=== PATIENT | female | born 1955 | race Caucasian/White ===

== ENCOUNTER 2016-07-26 08:30 | Emergency (ER) | payer OTHER ==
[2016-07-26] MEDS ORDERED: methylPREDNISolone Sod Succ/PF 125 MG/2 ML VIAL ONE (08:43)
[2016-07-26] MEDS ORDERED: Magnesium Sulfate 2 GM/100 ML BAG ONE (09:03)
[2016-07-26] MEDS ORDERED: Albuterol Sulfate 1.25 MG/3 ML NEB ONE (09:03)
[2016-07-26] MEDS ORDERED: Acetaminophen 500 MG TAB ONE (09:21)
[2016-07-26] MEDS ORDERED: traMADol HCl 50 MG TAB ONE (09:26)
[2016-07-26 09:30] LABS: ALT (SGPT) 48 U/L (0-55); AST (SGOT) 48 U/L (5-34); Alkaline Phosphatase 70 U/L (40-150); Anion Gap 10 mmol/L (10-20); BUN (Urea Nitrogen) 7 mg/dL (9.8-20.1); Bilirubin, Total 0.5 mg/dL (0.2-1.2); Calc. Creatinine Clearance 0 mL/min (70-130); Calcium 8.7 mg/dL (7.8-10.44); Carbon Dioxide 28 mmol/L (22-29); Chloride 103 mmol/L (98-107); Estimated GFR-MDRD 73; Globulin 3.2 g/dL (2.4-3.5); Protein, Total 6.7 g/dL (6.0-8.3)
[2016-07-26 09:31] LABS: Hematocrit 32.5 % (36.0-47.0); Mean Platelet Volume 8.8 fL (7.4-10.4); Red Blood Cell (RBC) Count 4.23 mill/uL (4.20-5.40); White Blood Cell (WBC) Count 6.1 thou/uL (4.8-10.8)
[2016-07-26 09:34] LABS: #Basophils 0.1 thou/uL (0.0-0.2); #Eosinphils 0.2 thou/uL (0.0-0.7); #Lymphocytes 1.4 thou/uL (1.20-3.40); #Monocytes 0.7 thou/uL (0.11-0.59); #Neutrophils 3.8 thou/uL (1.40-6.50); %Basophils 1.2 % (0.0-1.0); %Eosinophils 2.9 % (0.0-10.0); %Monocytes 10.8 % (0.0-10.0); Hypochromia SLIGHT = 6-15 cells (100X) (0-5/hpf); Microcytosis SLIGHT = 6-15 cells (100X) (0-5/hpf); Poikilocytosis MODERATE=16-30 cells (100X) (0-5/hpf); Polychromasia SLIGHT = 2-3 cells (100X) (0-2/hpf)
--- NOTE | 2016-07-26 10:19 | ERRECORD ---
[facility] EMERGENCY RECORD HPI COPD (08:36 [facility]) CHIEF COMPLAINT: Patient presents for evaluation of cough, Patient presents for evaluation of dyspnea, Patient presents for evaluation of wheezing. HISTORIAN: History provided by patient. LOCATION: Symptoms are generalized. QUALITY: Symptoms described as tightness, Pain is dull in nature, described as tightness reported., Described as similar to previous episodes. SEVERITY: Maximum severity of symptoms severe, Currently symptoms are severe. TIME COURSE: Gradual onset of symptoms, past several days., Symptoms are worsening. ASSOCIATED WITH: No associated chest pain, Associated with cough, No associated fever, Associated with increased inhaler use, No associated orthopnea, Associated with upper respiratory infection, No associated weakness, Associated with history of chronic obstructive pulmonary disease, Associated with history of previous ventilator, Denies any other complaints, Had pacemaker placed 2 weeks ago. EXACERBATED BY: Patient's condition exacerbated by deep breaths, Patient's condition exacerbated by exercise. RELIEVED BY: Patient's condition not relieved by inhaler use, Patient's condition not relieved by oxygen. RISK FACTORS: No pulmonary embolism risk factors, Coronary artery disease risk factors, include smoking. ROS (08:36 [facility]) CONSTITUTIONAL: Historian reports chills, denies fever, reports weakness. EYES: Negative eye review of systems, Historian denies eye pain, denies eye redness, denies eye discharge. ENT: Historian denies rhinorrhea, denies sore throat. CARDIOVASCULAR: Historian reports chest pain, no radiation, Historian reports dyspnea on exertion, denies edema, denies orthopnea, denies syncope, denies palpitations. CP noted with coughing, intermittent. RESPIRATORY: Historian reports cough, reports shortness of breath, denies sputum, denies stridor, reports wheezing. GI: Negative gastrointestinal review of systems, Historian denies abdominal pain, denies diarrhea, denies nausea, denies vomiting. GENITOURINARY FEMALE: Historian denies dysuria, denies frequency, denies hematuria. MUSCULOSKELETAL: Historian denies injury, Denies any musculoskeletal pain. SKIN: Negative skin review of systems, Historian denies skin changes. NEUROLOGIC: Negative neurologic review of systems, Historian denies focal weakness, denies sensory changes. &a-1R&a+25V*p+0X*l0522H*c202B*c15G*c2P*p-0X&a-25V&a+1R Name: Erum Verde : 1955 F60 MedRec: [id number] AcctNum: [id number] Prepared: Ruthie Jul 27, 2016 06:08 by Interface Page 1 of 5 pMD [facility] EMERGENCY RECORD HEMO/LYMPHATIC: Historian denies abnormal blood clotting, denies easy bruising. PAST MEDICAL HISTORY (:24 [facility]) MEDICAL HISTORY: Notes: anemic, Past medical history includes history of diabetes, Type II, Past medical history includes cardiac history, congestive heart failure, arrhythmia, atrial fibrillation, Past medical history includes history of hypertension, Past medical history includes pulmonary disease, chronic obstructive pulmonary disease. FEMALE SURGICAL HISTORY: pacemaker placement, surgery on right arm and right leg, Surgical history of cholecystectomy. PSYCHIATRIC HISTORY: Psychiatric history includes, anxiety. SOCIAL HISTORY: Patient denies alcohol use, Patient denies drug use, Patient is a former tobacco user, smoked cigarettes, Patient quit smoking in the past year, Patient denies alcohol use, Patient denies drug use, Patient currently uses tobacco, smokes cigarettes, 1-2 a week. KNOWN ALLERGIES lisinopril CURRENT MEDICATIONS [place]: TABLET : Strength - 10 mg-325 mg : ORAL Patient Dose: 1 tab(s) Oral every 6 hours PRN. (:18 [facility]) TABLET : Strength - 5 mg-325 mg : ORAL Patient Dose: 1 tab(s) Oral 2 times a day. (:18 [facility]) albuterol: AEROSOL (GRAM) : Strength - 90 mcg : INHALATION Patient Dose: 2 puff(s) Inhaler every 4 hours prn. (:18 [facility]) albuterol sulfate: VIAL, NEBULIZER (ML) : Strength - 2.5 mg/3 mL (0.083 %) : INHALATION Patient Dose: 1 units Nebulize every 4 hours prn. (:18 [facility]) ALPRAZolam: TABLET : Strength - 0.5 mg : ORAL Patient Dose: 1 tab(s) Oral. (09:18 [facility]) Eliquis: TABLET : Strength - 5 mg : ORAL Patient Dose: 1 tab(s) Oral 2 times a day. (09:19 [facility]) aspirin: TABLET : Strength - 81 mg : ORAL Patient Dose: 81 mg Oral once a day. (09: [facility]) Wellbutrin: TABLET : Strength - 100 mg : ORAL &a-1R&a+25V*p+0X*q6444A*c202B*c15G*c2P*p-0X&a-25V&a+1R Name: Erum Verde : 1955 F60 MedRec: [id number] AcctNum: [id number] Prepared: Ruthie Jul 27, 2016 06:08 by Interface Page 2 of 5 pMD [facility] EMERGENCY RECORD Patient Dose: 150 mg Oral once a day. (09: [facility]) Cardizem LA: TABLET, EXTENDED RELEASE 24 HR : Strength - 240 mg : ORAL Patient Dose: 1 tab(s) Oral once a day (in the morning). (09: [facility]) Pepcid: TABLET : Strength - 20 mg : ORAL Patient Dose: 20 mg Oral once a day. (09: [facility]) flecainide: TABLET : Strength - 50 mg : ORAL Patient Dose: 100 mg Oral 2 times a day. (09: [facility]) Flonase: SPRAY, SUSPENSION : Strength - 50 mcg : NASAL Patient Dose: 1 spray(s) Intranasal. (09: [facility]) Breo Ellipta: BLISTER, WITH INHALATION DEVICE : Strength - 100 mcg-25 mcg/dose : INHALATION Patient Dose: 1 puff(s) Inhaler once a day. (09: [facility]) furosemide: TABLET : Strength - 40 mg : ORAL Patient Dose: 40 mg Oral once a day. (: [facility]) LORazepam: TABLET : Strength - 1 mg : ORAL Patient Dose: 1 tab(s) Oral every 8 hours PRN. (: [facility]) Singulair: TABLET : Strength - 10 mg : ORAL Patient Dose: 10 mg Oral once a day. (09: [facility]) predniSONE: TABLET : Strength - 20 mg : ORAL Patient Dose: 1 tab(s) Oral once a day (in the morning). (: [facility]) Requip: TABLET : Strength - 1 mg : ORAL Patient Dose: 1 mg Oral once a day. (09: [facility]) traZODone: TABLET : Strength - 50 mg : ORAL Patient Dose: 1 tab(s) Oral once a day (at bedtime). (09:28 [facility]) VITAL SIGNS VITAL SIGNS: BP: 172/134, Pulse: 94, Resp: 24, Temp: 98.0 (Oral), Pain: 8, O2 sat: 96 on 2L Oxygen, Time: 07/26/2016 08:39. (08:39 [facility]) BP: 138/93, Pulse: 84, Resp: 25, O2 sat: 94 on 2L Oxygen, Time: 07/26/2016 08:45. (08:45 [facility]) BP: 119/85, Pulse: 89, Resp: 22, Temp: 98.3 (Oral), Pain: 7, O2 sat: 96 on 2L Oxygen, Time: 07/26/2016 09:15. (09:15 [facility]) PHYSICAL EXAM (08:36 [facility]) CONSTITUTIONAL: Vital Signs Reviewed, Patient appears non toxic, Patient appears pain free, Patient alert and oriented to person, &a-1R&a+25V*p+0X*m9060R*c202B*c15G*c2P*p-0X&a-25V&a+1R Name: Erum Verde : 1955 F60 MedRec: [id number] AcctNum: [id number] Prepared: Ruthie Jul 27, 2016 06:08 by Interface Page 3 of 5 D [facility] EMERGENCY RECORD place and time, Nursing notes reviewed. HEAD: Head exam included findings of head atraumatic, normocephalic. EYES: Eye exam included findings of eyelids normal to inspection, Pupils equally round and reactive to light, Extraocular muscles intact. ENT: Ear exam normal, external ear normal, Pharynx exam normal. NECK: Neck exam normal, no cervical adenopathy, no tenderness. RESPIRATORY CHEST: Respiratory exam included findings of, moderate respiratory distress, Breath sounds not clear, Wheezing present, No rales, No rhonchi, Breath sounds diminished, to bilateral upper lobes, to bilateral lower lobes, Chest exam included findings of chest movement symmetrical, Chest expansion equal, no tenderness. CARDIOVASCULAR: Cardiovascular exam included findings of heart rate regular rate and rhythm, Heart sounds normal, normal S1, normal S2, no murmurs, Carotids normal, Pedal pulses normal, Pacer site L upper chest looks clean/dry/intact. ABDOMEN FEMALE: Abdominal exam included findings of abdomen nontender, Bowel sounds normal, no peritoneal signs, no rigidity, no guarding, no rebound. BACK: Back exam included findings of normal inspection, no tenderness. UPPER EXTREMITY: Upper extremity exam included findings of inspection normal, Radial pulse normal, no cyanosis, no clubbing, no edema. LOWER EXTREMITY: Lower extremity exam included findings of inspection normal, femoral pulses normal, no cyanosis, no clubbing, no edema, no tenderness noted. NEURO: Neuro exam findings include patient oriented to, person, place, Speech normal, Cranial nerves intact, no focal motor deficits, no focal sensory deficits. SKIN: Skin exam included findings of skin warm, dry, and normal in color. EKG INTERPRETATION (08:44 [facility]) 12 LEAD EKG INTERPRETATION: 12 lead EKG interpreted by Emergency Department Physician at time of study, 12 lead EKG shows, Rate (beats per minute): 95, Atrial sensed pacer with nml function and occasional sinus complexes., Conduction with, nonspecific intraventricular conduction delay. RADIOLOGYINTERPRETATION (09:00 [facility]) CHEST: Chest films negative, no infiltrates, no pneumothorax. DIVING COACH: Preliminary review of x-rays by, ED Physician. MEDICATION ADMINISTRATION SUMMARY Drug Name: *traMADol, Dose Ordered: 50 mg, Route: Oral, Status: &a-1R&a+25V*p+0X*w1886Z*c202B*c15G*c2P*p-0X&a-25V&a+1R Name: Erum Verde : 1955 F60 MedRec: [id number] AcctNum: [id number] Prepared: Ruthie Jul 27, 2016 06:08 by Interface Page 4 of 5 pMD [facility] EMERGENCY RECORD Given, Time: 09:27 07/26/2016, Drug Name: *Tylenol Extra Strength, Dose Ordered: 1 g, Route: Oral, Status: Held, Time: 09:22 07/26/2016, Drug Name: albuterol sulfate inhalation, Dose Ordered: 10 mg, Route: Nebulize, Status: Given, Time: 09:11 07/26/2016, Drug Name: magnesium sulfate injection, Dose Ordered: 2 g, Route: IV Piggy Back, Status: Given, Time: 09:11 07/26/2016, Drug Name: methylPREDNISolone sodium succ injection, Dose Ordered: 125 mg, Route: IV Push, Status: Given, Time: 09:04 07/26/2016, Drug Name: *DuoNeb, Dose Ordered: 3 mL, Route: Nebulize, Status: Given, Time: 08:39 07/26/2016, *Additional information available in notes, Detailed record available in Medication Service section. DOCTOR NOTES RE-EVALUATION: Routine re-evaluation, after administration of bronchodilator nebulizer treatments, The patient's condition has improved, mild increase in her air movement and her work of breathing is better but wheezing continues. Will continue her breathing treatments and other therapies. Discussed plan and possible need for transfer if symptoms do not improve. (09:00 [facility]) TEXT: Dr Diaz accepted at [facility] Pt stable remains tight on expiration but no distress. (09:50 [facility]) SIGN OUT: Patient signed out to, Dr. Parker. (09:00 [facility]) PROBLEM LIST No recorded problems DIAGNOSIS (09:52 [facility]I) FINAL: PRIMARY: copd exacerbation. PRESCRIPTION No recorded prescriptions DISPOSITION PATIENT: Disposition Type: Transfer, Disposition: [facility], Disposition Transport: Ambulance, Condition: Fair. (09:52 [facility]MEI) Patient left the department. (10:15 [facility]) Gates: GREG=NED Ruvalcaba, Angel KMOR=NED Cote, Angelica MBRI=DO Shabazz Matthew WMEI=DO Parker William &a-1R&a+25V*p+0X*s9404R*c202B*c15G*c2P*p-0X&a-25V&a+1R Name: Erum Verde : 1955 F60 MedRec: [id number] AcctNum: [id number] Prepared: Ruthie Jul 27, 2016 06:08 by Interface Page 5 of 5 pMD MTDD
--- NOTE | 2016-07-26 10:25 | PICIS ---
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 FACTORS: No pulmonary embolism risk factors, Coronary artery disease risk factors, include smoking. ROS (08:36 MBRI) CONSTITUTIONAL: Historian reports chills, denies fever, reports weakness. EYES: Negative eye review of systems, Historian denies eye pain, denies eye redness, denies eye discharge. ENT: Historian denies rhinorrhea, denies sore throat. CARDIOVASCULAR: Historian reports chest pain, no radiation, Historian reports dyspnea on exertion, denies edema, denies orthopnea, denies syncope, denies palpitations. CP noted with coughing, intermittent. RESPIRATORY: Historian reports cough, reports shortness of breath, denies sputum, denies stridor, reports wheezing. GI: Negative gastrointestinal review of systems, Historian denies abdominal pain, denies diarrhea, denies nausea, denies vomiting. GENITOURINARY FEMALE: Historian denies dysuria, denies frequency, denies hematuria. MUSCULOSKELETAL: Historian denies injury, Denies any musculoskeletal pain. SKIN: Negative skin review of systems, Historian denies skin changes. NEUROLOGIC: Negative neurologic review of systems, Historian denies focal weakness, denies sensory changes. HEMO/LYMPHATIC: Historian denies abnormal blood clotting, denies easy bruising. PAST MEDICAL HISTORY (09:24 [facility]) &a-1R&a+25V*p+0X*r0092B*c202B*c15G*c2P*p-0X&a-25V&a+1R Name: Erum Verde : 1955 F60 MedRec: [id number] AcctNum: [id number] Prepared: Ruthie Jul 27, 2016 06:15 by Interface Page 10 of 14 pMD [facility] EMERGENCY RECORD MEDICAL HISTORY: Notes: anemic, Past medical history includes history of diabetes, Type II, Past medical history includes cardiac history, congestive heart failure, arrhythmia, atrial fibrillation, Past medical history includes history of hypertension, Past medical history includes pulmonary disease, chronic obstructive pulmonary disease. FEMALE SURGICAL HISTORY: pacemaker placement, surgery on right arm and right leg, Surgical history of cholecystectomy. PSYCHIATRIC HISTORY: Psychiatric history includes, anxiety. SOCIAL HISTORY: Patient denies alcohol use, Patient denies drug use, Patient is a former tobacco user, smoked cigarettes, Patient quit smoking in the past year, Patient denies alcohol use, Patient denies drug use, Patient currently uses tobacco, smokes cigarettes, 1-2 a week. PHYSICAL EXAM (08:36 MBRI) CONSTITUTIONAL: Vital Signs Reviewed, Patient appears non toxic, Patient appears pain free, Patient alert and oriented to person, place and time, Nursing notes reviewed. HEAD: Head exam included findings of head atraumatic, normocephalic. EYES: Eye exam included findings of eyelids normal to inspection, Pupils equally round and reactive to light, Extraocular muscles intact. ENT: Ear exam normal, external ear normal, Pharynx exam normal. NECK: Neck exam normal, no cervical adenopathy, no tenderness. RESPIRATORY CHEST: Respiratory exam included findings of, moderate respiratory distress, Breath sounds not clear, Wheezing present, No rales, No rhonchi, Breath sounds diminished, to bilateral upper lobes, to bilateral lower lobes, Chest exam included findings of chest movement symmetrical, Chest expansion equal, no tenderness. CARDIOVASCULAR: Cardiovascular exam included findings of heart rate regular rate and rhythm, Heart sounds normal, normal S1, normal S2, no murmurs, Carotids normal, Pedal pulses normal, Pacer site L upper chest looks clean/dry/intact. ABDOMEN FEMALE: Abdominal exam included findings of abdomen nontender, Bowel sounds normal, no peritoneal signs, no rigidity, no guarding, no rebound. BACK: Back exam included findings of normal inspection, no tenderness. UPPER EXTREMITY: Upper extremity exam included findings of inspection normal, Radial pulse normal, no cyanosis, no clubbing, no edema. LOWER EXTREMITY: Lower extremity exam included findings of inspection normal, femoral pulses normal, no cyanosis, no clubbing, no edema, no tenderness noted. &a-1R&a+25V*p+0X*n1910D*c202B*c15G*c2P*p-0X&a-25V&a+1R Name: Erum Verde : 1955 F60 MedRec: [id number] AcctNum: [id number] Prepared: Ruthie Jul 27, 2016 06:15 by Interface Page 11 of 14 D [facility] EMERGENCY RECORD NEURO: Neuro exam findings include patient oriented to, person, place, Speech normal, Cranial nerves intact, no focal motor deficits, no focal sensory deficits. SKIN: Skin exam included findings of skin warm, dry, and normal in color. EVENTS TRANSFER: Triage to Emergency Emergency Room -03. (Sat Jul 26, 2016 08:33 [facility]) Removed from Emergency Emergency Room -03. (10:15 [facility]) RADIOLOGYINTERPRETATION (09:00 [facility]) CHEST: Chest films negative, no infiltrates, no pneumothorax. [employer]ER: Preliminary review of x-rays by, ED Physician. EKG INTERPRETATION (08:44 [facility]) 12 LEAD EKG INTERPRETATION: 12 lead EKG interpreted by Emergency Department Physician at time of study, 12 lead EKG shows, Rate (beats per minute): 95, Atrial sensed pacer with nml function and occasional sinus complexes., Conduction with, nonspecific intraventricular conduction delay. O2SAT INTERPRETATION (08:44 MBRI) O2SAT: Oxygen saturation interpretation: Low normal, Intervention required: Oxygen administration, Intervention required: aerosol treatment. DOCTOR NOTES RE-EVALUATION: Routine re-evaluation, after administration of bronchodilator nebulizer treatments, The patient's condition has improved, mild increase in her air movement and her work of breathing is better but wheezing continues. Will continue her breathing treatments and other therapies. Discussed plan and possible need for transfer if symptoms do not improve. (09:00 [facility]) TEXT: Dr Diaz accepted at Med Pt stable remains tight on expiration but no distress. (09:50 WMEI) SIGN OUT: Patient signed out to, Dr. Parker. (09:00 MBRI) PROBLEM LIST No recorded problems DIAGNOSIS (09:52 WMEI) FINAL: PRIMARY: copd exacerbation. DISPOSITION PATIENT: Disposition Type: Transfer, Disposition: [facility], Disposition Transport: Ambulance, Condition: Fair. (09:52 WMEI) Patient left the department. (10:15 [facility]) &a-1R&a+25V*p+0X*z4331Q*c202B*c15G*c2P*p-0X&a-25V&a+1R Name: Erum Verde : 1955 F60 MedRec: [id number] AcctNum: [id number] Prepared: Ruthie Jul 27, 2016 06:15 by Interface Page 12 of 14 pMD [facility] EM[facility] RECORD PRESCRIPTION No recorded prescriptions IMAGING *EKG: Image captured from scanner. (09:13 KMOR) MONITOR STRIPS: Image captured from scanner. (09:14 KMOR) *MEMORANDUM OF TRANSFER: Image captured from scanner. (10:05 JHIG) CONSENTS: Image captured from scanner. (10:06 JHIG) PHYSICIAN CERTIFICATION STATEMENT: Image captured from scanner. (10:06 JHIG) *SUPPLY CHARGE SHEET: Image captured from scanner. (10:14 JHIG) ADMIN DIGITAL SIGNATURE: NED Cote Krista. (10:37 KMOR) NED Cote Krista. (12:37 KMOR) DO Parker William. ([place] Jul 27, 2016 06:04 [facility]) RESULTS (11:22 KMOR) LABORATORY: CBC with Differential Collection DT: Sat Jul 26, 2016 09:10, White Blood Cell (WBC) Count 6.1 thou/uL, Range (4.8-10.8), Red Blood Cell (RBC) Count 4.23 mill/uL, Range (4.20-5.40), *Hemoglobin 10.3 - L g/dL, Range (12.0-16.0), *Hematocrit 32.5 - L %, Range (36.0-47.0), *Mean Corpuscular Volume 76.8 - L fl, Range (81.0-99.0), *Mean Corpuscular Hemoglobin 24.3 - L pg, Range (27.0-31.0), *Mean Corpuscular HGB CONC 31.7 - L g/dL, Range (32.0-36.0), *RBC Distribution Width 16.9 - H %, Range (11.5-14.5), *Platelet Count 127 - L thou/uL, Range (130-400), Mean Platelet Volume 8.8 fL, Range (7.4-10.4), %Neutrophils 62.5 %, Range (42.0-75.0), %Lymphocytes 22.6 %, Range (21.0-51.0), *%Monocytes 10.8 - H %, Range (0.0-10.0), %Eosinophils 2.9 %, Range (0.0-10.0), *%Basophils 1.2 - H %, Range (0.0-1.0), #Neutrophils 3.8 thou/uL, Range (1.40-6.50), #Lymphocytes 1.4 thou/uL, Range (1.20-3.40), *#Monocytes 0.7 - H thou/uL, Range (0.11-0.59), #Eosinphils 0.2 thou/uL, Range (0.0-0.7), #Basophils 0.1 thou/uL, Range (0.0-0.2), Poikilocytosis MODERATE=16-30 cells (100X), Range (0-5/hpf), Microcytosis SLIGHT = 6-15 cells (100X), Range (0-5/hpf), Hypochromia SLIGHT = 6-15 cells (100X), Range (0-5/hpf), Polychromasia SLIGHT = 2-3 cells (100X), Range (0-2/hpf), *PLT Morphology Comment Appears Decreased - , * L . Comprehensive Metabolic Panel Collection DT: Aung Jul 26, 2016 09:10, &a-1R&a+25V*p+0X*f9741W*c202B*c15G*c2P*p-0X&a-25V&a+1R Name: Erum Verde : 1955 F60 MedRec: [id number] AcctNum: [id number] Prepared: Ruthie Jul 27, 2016 06:15 by Interface Page 13 of 14 pMD [facility] EMERGENCY RECORD Sodium 138 mmol/L, Range (136-145), *Potassium 3.3 - L mmol/L, Range (3.5-5.1), Chloride 103 mmol/L, Range (98-107), Carbon Dioxide 28 mmol/L, Range (22-29), Anion Gap 10 mmol/L, Range (10-20), *BUN (Urea Nitrogen) 7 - L mg/dL, Range (9.8-20.1), Creatinine 0.80 mg/dL, Range (0.6-1.1), Estimated GFR-MDRD 73 , Reference Range for Estimated GFR: Greater than 90, mL/min/1.73 m2 NOTE: The MDRD equation has not been validated for use, with the elderly (over 70 years of age), women, patients with, serious comorbid condition or persons with extremes of body size, muscle, mass, or nutritional status. , *Glucose 160 - H mg/dL, Range (70-105), Calcium 8.7 mg/dL, Range (7.8-10.44), Bilirubin, Total 0.5 mg/dL, Range (0.2-1.2), Protein, Total 6.7 g/dL, Range (6.0-8.3), NOTE: Plasma values are generally 0.3 to 0.5 g/dL higher than serum values, due to the presence of fibrinogen. , Albumin 3.5 g/dL, Range (3.5-5.0), Globulin 3.2 g/dL, Range (2.4-3.5), *Alb/Glob Ratio 1.1 - L g/dL, Range (1.2-2.2), Alkaline Phosphatase 70 U/L, Range (40-150), *AST (SGOT) 48 - H U/L, Range (5-34), ALT (SGPT) 48 U/L, Range (0-55). Gates: GREG=NED Ruvalcaba, Angel KMOR=NED Cote, Angelica MBRI=DO Shabazz Matthew WMEI=DO Parker William &a-1R&a+25V*p+0X*e3593L*c202B*c15G*c2P*p-0X&a-25V&a+1R Name: Erum Verde : 1955 F60 MedRec: [id number] AcctNum: [id number] Prepared: Ruthie Jul 27, 2016 06:15 by Interface Page 14 of 14 pMD MTDD
--- NOTE | 2016-07-26 15:09 | RAD ---
PORTABLE CHEST: DATE: 07/26/16. FINDINGS: An AP portable film at 0838 is compared with an 05/20/16 study. The heart is normal in size and the lungs are clear. Minimal streaking in the lingula on the left s eems no different than the prior study. There are no effusions or signs of vascular congestion. Po rtions of the lung apices are obscured by overlapping bones. A cardiac pacer has been placed since the prior exam. IMPRESSION: No acute finding. POS: HOME
== END 2016-07-26 10:13 | disposition home or self-care (01) ==
LOC: BURERS 08:30
DX: J44.1 Chronic obstructive pulmonary disease with (acute) exacerbation (principal); E11.9 Type 2 diabetes mellitus without complications; I50.9 Heart failure, unspecified; I48.91 Unspecified atrial fibrillation; I10 Essential (primary) hypertension; F41.9 Anxiety disorder, unspecified; Z87.891 Personal history of nicotine dependence; Z79.899 Other long term (current) drug therapy
CPT/HCPCS: 71010; 80053; 85025; 93005; 94640; 94644; 94760; 96365; 96375; J2930; J3475; J7620

== ENCOUNTER 2016-08-10 09:29 | Emergency (ER) | payer OTHER ==
[2016-08-10] MEDS ORDERED: Albuterol Sulfate 2.5 mg/3 ml Neb ONE (09:34)
[2016-08-10] MEDS ORDERED: Magnesium Sulfate 2 GM/100 ML BAG ONE (09:34)
[2016-08-10] MEDS ORDERED: methylPREDNISolone Sod Succ/PF 125 MG/2 ML VIAL ONE (09:40)
[2016-08-10 10:08] LABS: #Basophils 0.1 thou/uL (0.0-0.2); #Eosinphils 0.1 thou/uL (0.0-0.7); #Lymphocytes 1.3 thou/uL (1.20-3.40); #Monocytes 0.3 thou/uL (0.11-0.59); #Neutrophils 2.8 thou/uL (1.40-6.50); %Basophils 1.4 % (0.0-1.0); %Monocytes 6.9 % (0.0-10.0); Hematocrit 32.3 % (36.0-47.0); Mean Platelet Volume 7.9 fL (7.4-10.4); Red Blood Cell (RBC) Count 4.23 mill/uL (4.20-5.40); White Blood Cell (WBC) Count 4.6 thou/uL (4.8-10.8)
[2016-08-10 10:20] LABS: ALT (SGPT) 33 U/L (0-55); AST (SGOT) 32 U/L (5-34); Alkaline Phosphatase 68 U/L (40-150); Anion Gap 12 mmol/L (10-20); BUN (Urea Nitrogen) 4 mg/dL (9.8-20.1); Bilirubin, Total 0.5 mg/dL (0.2-1.2); Calc. Creatinine Clearance 0 mL/min (70-130); Calcium 8.3 mg/dL (7.8-10.44); Carbon Dioxide 25 mmol/L (22-29); Chloride 109 mmol/L (98-107); Estimated GFR-MDRD 83; Globulin 3.1 g/dL (2.4-3.5); Protein, Total 6.4 g/dL (6.0-8.3)
[2016-08-10 10:21] LABS: Troponin I 0.027 ng/mL (< 0.028)
[2016-08-10 10:26] LABS: Hypochromia SLIGHT = 6-15 cells (100X) (0-5/hpf); Microcytosis SLIGHT = 6-15 cells (100X) (0-5/hpf); Ovalocytes SLIGHT = 2-5 cells (100X) (0-1/hpf); Polychromasia SLIGHT = 2-3 cells (100X) (0-2/hpf)
--- NOTE | 2016-08-10 10:37 | RAD ---
PORTABLE CHEST: DATE: 08/10/16. FINDINGS: An AP portable film at 0941 is compared with a 07/26/16 study. The heart is mildly enlarged, but no more so than before. A cardiac pacer remains in place. No vas cular congestion or large effusions were appreciated. There is some linear infiltrate in the right base which is most likely atelectasis. A little streaking around the lingula may be scarring as I s ee a very similar finding on the 07/26 study. The trachea is midline. IMPRESSION: 1. Mild cardiomegaly without convincing findings of congestive heart failure. 2. Basilar streaking, particularly of the right lower lobe. POS: HOME
[2016-08-10] MEDS ORDERED: Fentanyl 100 MCG/2 ML VIAL ONE (10:39)
[2016-08-10 11:36] LABS: Bilirubin Negative (Negative); Blood, Urine Moderate (Negative); Glucose, Urine (Dipstick) Negative (Negative); Ketone, Urine Negative (Negative); Nitrite Negative (Negative); Protein, Urine (Dipstick) 30 mg/dL (Neg-Trace)
[2016-08-10 11:41] LABS: Bacteria/HPF Rare-Few HPF (None Seen); RBC/HPF 0-3 HPF (0-3); Squamous Epithelial 0-3 HPF (0-3)
[2016-08-10] MEDS ORDERED: Lorazepam 0.5 MG TAB ONE (11:54)
[2016-08-10] MEDS ORDERED: HYDROcodone/Acetaminophen 10/325 mg Tablet ONE (13:30)
== END 2016-08-10 15:06 | disposition short-term general hospital (02) ==
LOC: BURERS 09:29
DX: J44.1 Chronic obstructive pulmonary disease with (acute) exacerbation (principal); D64.9 Anemia, unspecified; E11.9 Type 2 diabetes mellitus without complications; I11.0 Hypertensive heart disease with heart failure; I50.9 Heart failure, unspecified; I48.91 Unspecified atrial fibrillation; F41.9 Anxiety disorder, unspecified; Z87.891 Personal history of nicotine dependence; Z79.82 Long term (current) use of aspirin; Z79.899 Other long term (current) drug therapy
CPT/HCPCS: 36415; 71010; 80053; 81003; 81015; 82553; 83880; 84484; 85025; 87040; 87086; 94640; 94760; 96361; 96365; 96374; 96375; J2930; J3010; J3475; J7611; J7620

== ENCOUNTER 2016-09-18 19:40 | Emergency (ER) | payer OTHER ==
[2016-09-18] MEDS ORDERED: methylPREDNISolone Sod Succ/PF 125 MG/2 ML VIAL ONE (20:32)
[2016-09-18] MEDS ORDERED: Piperacillin/Tazobactam 3.375 GM VIAL ONE (20:45)
[2016-09-18] MEDS ORDERED: HYDROcodone/Acetaminophen 5/325 mg Tablet ONE (20:45)
[2016-09-18] MEDS ORDERED: Sodium Chloride 0.9% 100 ML ONE ×2 (20:45→21:33)
[2016-09-18 20:47] LABS: Bilirubin Negative (Negative); Blood, Urine Small (Negative); Clarity Clear (Clear); Glucose, Urine (Dipstick) Negative (Negative); Leukocyte Negative (Negative); Nitrite Negative (Negative); Protein, Urine (Dipstick) Negative (Neg-Trace); Specific Gravity, Urine 1.015 (1.005-1.030); Urobilinogen 0.2 mg/dL (0.2-1.0)
[2016-09-18 20:55] LABS: ALT (SGPT) 25 U/L (0-55); AST (SGOT) 26 U/L (5-34); Albumin 3.6 g/dL (3.5-5.0); Alkaline Phosphatase 51 U/L (40-150); Anion Gap 15 mmol/L (10-20); BUN (Urea Nitrogen) 5 mg/dL (9.8-20.1); Calc. Creatinine Clearance 0 mL/min (70-130); Calcium 8.7 mg/dL (7.8-10.44); Carbon Dioxide 31 mmol/L (22-29); Chloride 101 mmol/L (98-107); Estimated GFR-MDRD 87; Globulin 2.7 g/dL (2.4-3.5); Glucose 126 mg/dL (70-105); Potassium 3.5 mmol/L (3.5-5.1); Protein, Total 6.3 g/dL (6.0-8.3); Sodium 143 mmol/L (136-145)
[2016-09-18 20:55] LABS: Bacteria/HPF None Seen HPF (None Seen); RBC/HPF 0-3 HPF (0-3); Squamous Epithelial 0-3 HPF (0-3); WBC/HPF None Seen HPF (0-3)
[2016-09-18 21:08] LABS: CKMB 0.8 ng/mL (0-6.6); Troponin I 0.015 ng/mL (< 0.028)
[2016-09-18 21:13] LABS: #Lymphocytes 0.9 thou/uL (1.20-3.40); #Monocytes 0.4 thou/uL (0.11-0.59); #Neutrophils 4.9 thou/uL (1.40-6.50); %Basophils 0.7 % (0.0-1.0); %Eosinophils 0.7 % (0.0-10.0); %Lymphocytes 14.3 % (21.0-51.0); %Monocytes 6.2 % (0.0-10.0); %Neutrophils 78.1 % (42.0-75.0); Hemoglobin 9.8 g/dL (12.0-16.0); Hypochromia MODERATE=16-30 cells (100X) (0-5/hpf); MDiff Complete? YES; Mean Corpuscular HGB CONC 30.8 g/dL (32.0-36.0); Mean Corpuscular Hemoglobin 24.6 pg (27.0-31.0); Mean Corpuscular Volume 79.8 fl (81.0-99.0); Mean Platelet Volume 7.4 fL (7.4-10.4); Microcytosis SLIGHT = 6-15 cells (100X) (0-5/hpf); Ovalocytes MODERATE= 6-15 cells (100X) (0-1/hpf); PLT Morphology Comment Appears Decreased; Platelet Count 100 thou/uL (130-400); Polychromasia SLIGHT = 2-3 cells (100X) (0-2/hpf); RBC Distribution Width 18.8 % (11.5-14.5); Stomatocytes SLIGHT = 2-5 cells (100X) (0-1/hpf); White Blood Cell (WBC) Count 6.3 thou/uL (4.8-10.8)
--- NOTE | 2016-09-19 07:25 | RAD ---
PORTABLE CHEST: Date: 09/18/16 An AP portable film at 2010 hours is compared with the 08/10/16 study. FINDINGS: The heart is upper normal in size. There is no clear pulmonary edema. There is a linear infiltrate i n the lingula on the left. There also may be a little bit of infiltrate in the right base medially. These could be infectious in nature or merely atelectasis. There are no large effusions. As best as I can tell, the vessels are not overly congested. The trachea is midline. IMPRESSION: A few streaky infiltrative changes in the lingula and right base. Infection versus atelectasis. Davin morales follow-up films would probably be helpful in this patient. POS: [facility]EREK[facility]
== END 2016-09-18 21:44 | disposition short-term general hospital (02) ==
LOC: BURERS 19:40
DX: J44.1 Chronic obstructive pulmonary disease with (acute) exacerbation (principal); J18.9 Pneumonia, unspecified organism; E11.9 Type 2 diabetes mellitus without complications; I48.91 Unspecified atrial fibrillation; I11.0 Hypertensive heart disease with heart failure; I50.9 Heart failure, unspecified; F41.9 Anxiety disorder, unspecified; Z87.891 Personal history of nicotine dependence; Z79.891 Long term (current) use of opiate analgesic; Z79.82 Long term (current) use of aspirin; Z79.52 Long term (current) use of systemic steroids; Z79.84 Long term (current) use of oral hypoglycemic drugs; Z79.899 Other long term (current) drug therapy
CPT/HCPCS: 36415; 71010; 80053; 81003; 81015; 82553; 83880; 84484; 85025; 93005; 96365; 96375; J2543; J2930; J3370; J7050; J7620